=== PATIENT | female | born 1940 | race Caucasian/White ===

== ENCOUNTER 2017-07-13 11:31 | Inpatient (IN) ==
[2017-07-13] MEDS ORDERED: ACETAMINOPHEN 325 MG TABLET PO PRN (11:34)
[2017-07-13] MEDS ORDERED: ALUMINUM/MAGNES/SIMETH MAX STR 30 ML UDCUP PO PRN (11:34)
[2017-07-13] MEDS ORDERED: ONDANSETRON 4 MG/2 ML VIAL IV PRN (11:34)
[2017-07-13] MEDS ORDERED: DEXTROSE 50% 25 GM/50 ML VIAL IV PRN (11:34)
[2017-07-13] MEDS ORDERED: oxyCODONE/ACETAMINOPHEN 5-325 MG TABLET PO PRN (11:34)
[2017-07-13] MEDS ORDERED: GLUCAGON 1 MG VIAL IM PRN (11:34)
[2017-07-13] MEDS ORDERED: HYDROmorphone 2 MG/1 ML VIAL IV PRN (11:34)
[2017-07-13] MEDS ORDERED: SKIN HEALING OINT (AQUAPHOR) 50 GM TUBE TOP PRN (11:49)
[2017-07-13] MEDS ORDERED: CHLORHEXIDINE 4% SOLN 118 ML BOTTLE TOP ONE (11:49)
[2017-07-13 13:30] LABS: Basophils # 0.1 10*3/uL (0.0-0.2); Basophils % 0.6 % (0.0-0.8); Eosinophils # 0.1 10*3/uL (0.0-0.87); Eosinophils % 0.6 % (0.00-10.9); Hematocrit 41.3 VOL% (35.7-47.0); Hemoglobin 13.9 GM/DL (12.0-16.0); Immature Granulocytes % 0.6 %; Immature Granulocytes Absolute 0.07 #; Lymphocytes # 2.7 10*3/uL (1.4-4.0); Lymphocytes % 22.6 % (21.3-54.2); Mean Corpuscular HGB Conc 33.7 GM/DL (32-36); Mean Corpuscular Hemoglobin 28 PG (27-34); Mean Corpuscular Volume 83.9 FL (87-102); Mean Platelet Volume 9.4 FL (9.6-12.0); Monocytes # 0.6 10*3/uL (0.11-0.8); Monocytes % 5.5 % (1.7-12.7); Neutrophils # 8.2 10*3/uL (1.4-7.4); Neutrophils % 70.1 % (38.7-73.9); Platelet Count 364 T/CUMM (130-400); Red Blood Count 4.92 MC/CUMM (3.8-5.5); Red Cell Distribution Width 12.2 % (9.3-17.3); White Blood Count 11.7 T/CUMM (4-12)
[2017-07-13] MEDS: ALBUTEROL 2.5 MG/3 ML NEB RESP TX SCH ×3 (13:43→19:25)
[2017-07-13 13:50] LABS: Albumin 3.1 G/DL (3.4-5.0); Bilirubin,Total 0.4 MG/DL (0.2-1.0); Calcium 9.3 MG/DL (8.5-10.1); Osmolality,Calculated 274.8 MOS/KG (273-304); Potassium 4.3 MMOL/L (3.5-5.1); Total Protein 8.1 G/DL (6.4-8.3)
[2017-07-13] MEDS: SODIUM CHLORIDE 0.45% 1,000 ML IV SCH (15:59)
[2017-07-13] MEDS: MEROPENEM 1,000 MG in SODIUM CHLORIDE 0.9% 50 ML IV SCH ×2 (16:02→23:33)
[2017-07-13] MEDS: INSULIN REGULAR 100 UNIT/ML SUBCUT SCH ×2 (16:40→21:43)
[2017-07-13] MEDS: MAGNESIUM CHLORIDE 64 MG TABLET PO SCH (21:41)
[2017-07-13] MEDS: ASPIRIN EC 325 MG TABLET PO SCH (21:41)
[2017-07-13] MEDS: cloNIDine 0.1 MG TABLET PO SCH (21:42)
[2017-07-13] MEDS: DOCUSATE SODIUM 100 MG CAPSULE PO SCH (21:42)
[2017-07-14] MEDS: METOPROLOL TARTRATE 25 MG TABLET PO SCH ×3 (01:15→20:25)
[2017-07-14] MEDS: LEVALBUTEROL 1.25 MG/3 ML NEB RESP TX SCH ×4 (03:37→19:27)
[2017-07-14 03:47] LABS: Basophils # 0.1 10*3/uL (0.0-0.2); Basophils % 0.6 % (0.0-0.8); Eosinophils # 0.2 10*3/uL (0.0-0.87); Eosinophils % 2.2 % (0.00-10.9); Hematocrit 34.9 VOL% (35.7-47.0); Hemoglobin 11.9 GM/DL (12.0-16.0); Immature Granulocytes % 0.4 %; Immature Granulocytes Absolute 0.04 #; Lymphocytes % 44.2 % (21.3-54.2); Mean Corpuscular HGB Conc 34.1 GM/DL (32-36); Mean Corpuscular Hemoglobin 29 PG (27-34); Mean Corpuscular Volume 84.3 FL (87-102); Mean Platelet Volume 9.6 FL (9.6-12.0); Monocytes # 0.6 10*3/uL (0.11-0.8); Monocytes % 7.1 % (1.7-12.7); Neutrophils # 4.1 10*3/uL (1.4-7.4); Neutrophils % 45.5 % (38.7-73.9); Platelet Count 325 T/CUMM (130-400); Red Blood Count 4.14 MC/CUMM (3.8-5.5); Red Cell Distribution Width 12.3 % (9.3-17.3)
[2017-07-14 04:03] LABS: Calcium 8.7 MG/DL (8.5-10.1); Osmolality,Calculated 280.7 MOS/KG (273-304)
[2017-07-14] MEDS: MEROPENEM 1,000 MG in SODIUM CHLORIDE 0.9% 50 ML IV SCH ×3 (06:10→23:37)
[2017-07-14] MEDS: IPRATROPIUM 500 MCG/2.5 ML NEB RESP TX SCH ×4 (07:08→19:27)
[2017-07-14 07:56] LABS: Barbiturates Screen,Urine Negative (Negative); Benzodiazepines Screen,Urine Negative (Negative); Cannabinoid Screen,Urine Negative (Negative); Opiate Screen,Urine Negative (Negative); Phencyclidine Screen,Urine Negative (Negative)
[2017-07-14] MEDS: cloNIDine 0.1 MG TABLET PO SCH ×2 (08:17→20:25)
[2017-07-14] MEDS: INSULIN REGULAR 100 UNIT/ML SUBCUT SCH ×4 (08:18→23:28)
[2017-07-14] MEDS: MAGNESIUM CHLORIDE 64 MG TABLET PO SCH ×2 (09:35→20:25)
[2017-07-14] MEDS: SPIRONOLACTONE 25 MG TABLET PO SCH (09:35)
[2017-07-14] MEDS: CHLORTHALIDONE 25 MG TABLET PO SCH (09:36)
[2017-07-14] MEDS: DOCUSATE SODIUM 100 MG CAPSULE PO SCH ×2 (09:36→20:25)
[2017-07-14] MEDS: LISINOPRIL 20 MG TABLET PO SCH (09:36)
[2017-07-14] MEDS: amLODIPine 5 MG TABLET PO SCH (09:37)
[2017-07-14] MEDS: LITHIUM 150 MG CAPSULE PO SCH (09:38)
[2017-07-14] MEDS: SODIUM CHLORIDE 0.45% 1,000 ML IV SCH (09:39)
[2017-07-14] MEDS: PANTOPRAZOLE 40 MG TABLET PO SCH (09:41)
[2017-07-14] MEDS: BACITRACIN OINT 0.9 GM PACK TOP SCH (14:57)
[2017-07-14] MEDS ORDERED: MAGNESIUM SULF RIDER 2 GM in PREMIX 1 EACH IV ONE (20:25)
[2017-07-14] MEDS: ASPIRIN EC 325 MG TABLET PO SCH (20:29)
[2017-07-14] MEDS ORDERED: TEMAZEPAM 15 MG CAPSULE PO ONE (21:00)
[2017-07-15 03:49] LABS: Basophils # 0.1 10*3/uL (0.0-0.2); Basophils % 0.7 % (0.0-0.8); Eosinophils # 0.2 10*3/uL (0.0-0.87); Eosinophils % 2.4 % (0.00-10.9); Hematocrit 34.9 VOL% (35.7-47.0); Hemoglobin 11.9 GM/DL (12.0-16.0); Immature Granulocytes % 0.6 %; Immature Granulocytes Absolute 0.05 #; Lymphocytes % 35.4 % (21.3-54.2); Mean Corpuscular HGB Conc 34.1 GM/DL (32-36); Mean Corpuscular Hemoglobin 29 PG (27-34); Mean Corpuscular Volume 83.9 FL (87-102); Mean Platelet Volume 9.5 FL (9.6-12.0); Monocytes # 0.7 10*3/uL (0.11-0.8); Monocytes % 8.2 % (1.7-12.7); Neutrophils # 4.4 10*3/uL (1.4-7.4); Neutrophils % 52.7 % (38.7-73.9); Platelet Count 319 T/CUMM (130-400); Red Blood Count 4.16 MC/CUMM (3.8-5.5); Red Cell Distribution Width 12.3 % (9.3-17.3); White Blood Count 8.3 T/CUMM (4-12)
[2017-07-15 04:30] LABS: Calcium 8.7 MG/DL (8.5-10.1); Osmolality,Calculated 272.1 MOS/KG (273-304); Potassium 4.5 MMOL/L (3.5-5.1)
[2017-07-15] MEDS: SODIUM CHLORIDE 0.45% 1,000 ML IV SCH (06:32)
[2017-07-15] MEDS: MEROPENEM 1,000 MG in SODIUM CHLORIDE 0.9% 50 ML IV SCH ×3 (06:56→23:02)
[2017-07-15] MEDS: LEVALBUTEROL 1.25 MG/3 ML NEB RESP TX SCH ×4 (08:17→19:15)
[2017-07-15] MEDS: IPRATROPIUM 500 MCG/2.5 ML NEB RESP TX SCH ×4 (08:17→19:15)
[2017-07-15] MEDS: DOCUSATE SODIUM 100 MG CAPSULE PO SCH ×2 (09:44→21:12)
[2017-07-15] MEDS: cloNIDine 0.1 MG TABLET PO SCH ×2 (09:44→21:11)
[2017-07-15] MEDS: CHLORTHALIDONE 25 MG TABLET PO SCH (09:44)
[2017-07-15] MEDS: SPIRONOLACTONE 25 MG TABLET PO SCH (09:44)
[2017-07-15] MEDS: METOPROLOL TARTRATE 25 MG TABLET PO SCH ×2 (09:45→21:11)
[2017-07-15] MEDS: PANTOPRAZOLE 40 MG TABLET PO SCH (09:46)
[2017-07-15] MEDS: MAGNESIUM CHLORIDE 64 MG TABLET PO SCH ×2 (09:47→21:11)
[2017-07-15] MEDS: LITHIUM 150 MG CAPSULE PO SCH (09:54)
[2017-07-15] MEDS: INSULIN REGULAR 100 UNIT/ML SUBCUT SCH ×4 (09:54→21:12)
[2017-07-15] MEDS: amLODIPine 5 MG TABLET PO SCH (10:16)
[2017-07-15] MEDS: LISINOPRIL 20 MG TABLET PO SCH (10:16)
[2017-07-15] MEDS: BACITRACIN OINT 0.9 GM PACK TOP SCH (10:18)
[2017-07-15] MEDS: ASPIRIN EC 325 MG TABLET PO SCH (21:11)
[2017-07-16] MEDS: LEVALBUTEROL 1.25 MG/3 ML NEB RESP TX SCH ×4 (00:42→18:48)
[2017-07-16 05:02] LABS: Basophils % 0.5 % (0.0-0.8); Eosinophils # 0.2 10*3/uL (0.0-0.87); Eosinophils % 2.7 % (0.00-10.9); Hemoglobin 11.6 GM/DL (12.0-16.0); Immature Granulocytes % 0.5 %; Immature Granulocytes Absolute 0.04 #; Lymphocytes # 2.9 10*3/uL (1.4-4.0); Lymphocytes % 35.5 % (21.3-54.2); Mean Corpuscular HGB Conc 33.1 GM/DL (32-36); Mean Corpuscular Hemoglobin 28 PG (27-34); Mean Corpuscular Volume 85.4 FL (87-102); Mean Platelet Volume 9.4 FL (9.6-12.0); Monocytes # 0.6 10*3/uL (0.11-0.8); Neutrophils # 4.3 10*3/uL (1.4-7.4); Neutrophils % 53.8 % (38.7-73.9); Platelet Count 314 T/CUMM (130-400); Red Cell Distribution Width 12.5 % (9.3-17.3)
[2017-07-16 05:40] LABS: Calcium 8.5 MG/DL (8.5-10.1); Potassium 4.3 MMOL/L (3.5-5.1)
[2017-07-16] MEDS: MEROPENEM 1,000 MG in SODIUM CHLORIDE 0.9% 50 ML IV SCH ×2 (06:44→19:39)
[2017-07-16] MEDS: IPRATROPIUM 500 MCG/2.5 ML NEB RESP TX SCH ×4 (08:06→18:48)
[2017-07-16] MEDS ORDERED: INSULIN GLARGINE 100 UNIT/ML SUBCUT SCH ×2 (09:00→21:00)
[2017-07-16] MEDS: INSULIN REGULAR 100 UNIT/ML SUBCUT SCH ×4 (10:05→21:40)
[2017-07-16] MEDS: cloNIDine 0.1 MG TABLET PO SCH ×2 (10:05→21:30)
[2017-07-16] MEDS: DOCUSATE SODIUM 100 MG CAPSULE PO SCH ×2 (10:09→21:33)
[2017-07-16] MEDS: SPIRONOLACTONE 25 MG TABLET PO SCH (10:09)
[2017-07-16] MEDS: CHLORTHALIDONE 25 MG TABLET PO SCH (10:10)
[2017-07-16] MEDS: MAGNESIUM CHLORIDE 64 MG TABLET PO SCH ×2 (10:11→21:33)
[2017-07-16] MEDS: LISINOPRIL 10 MG TABLET PO SCH (10:11)
[2017-07-16] MEDS: METOPROLOL TARTRATE 25 MG TABLET PO SCH ×2 (10:11→21:30)
[2017-07-16] MEDS: PANTOPRAZOLE 40 MG TABLET PO SCH (10:11)
[2017-07-16] MEDS: LITHIUM 150 MG CAPSULE PO SCH (10:19)
[2017-07-16] MEDS: SODIUM CHLORIDE 0.45% 1,000 ML IV SCH ×2 (14:09→21:28)
[2017-07-16] MEDS: BACITRACIN OINT 0.9 GM PACK TOP SCH (19:39)
[2017-07-16] MEDS: ACETIC ACID 0.25% IRRIGATION 1,000 ML BOTTLE IRRIG SCH (21:29)
[2017-07-16] MEDS: LINEZOLID 600 MG TABLET PO SCH (21:30)
[2017-07-16] MEDS: GENTAMICIN 0.1% OINT 15 GM TUBE TOP SCH (21:33)
[2017-07-16] MEDS: ASPIRIN EC 325 MG TABLET PO SCH (21:33)
[2017-07-17] MEDS: LEVALBUTEROL 1.25 MG/3 ML NEB RESP TX SCH ×2 (00:03→07:31)
[2017-07-17] MEDS: IPRATROPIUM 500 MCG/2.5 ML NEB RESP TX SCH (07:31)
[2017-07-17] MEDS: INSULIN REGULAR 100 UNIT/ML SUBCUT SCH ×2 (08:07→11:47)
[2017-07-17] MEDS: DOCUSATE SODIUM 100 MG CAPSULE PO SCH (09:18)
[2017-07-17] MEDS: CHLORTHALIDONE 25 MG TABLET PO SCH (09:18)
[2017-07-17] MEDS: PANTOPRAZOLE 40 MG TABLET PO SCH (09:18)
[2017-07-17] MEDS: LISINOPRIL 10 MG TABLET PO SCH (09:19)
[2017-07-17] MEDS: METOPROLOL TARTRATE 25 MG TABLET PO SCH (09:19)
[2017-07-17] MEDS: MAGNESIUM CHLORIDE 64 MG TABLET PO SCH (09:19)
[2017-07-17] MEDS: LINEZOLID 600 MG TABLET PO SCH (09:20)
[2017-07-17] MEDS: cloNIDine 0.1 MG TABLET PO SCH (09:20)
[2017-07-17] MEDS: GENTAMICIN 0.1% OINT 15 GM TUBE TOP SCH (09:23)
[2017-07-17] MEDS: LITHIUM 150 MG CAPSULE PO SCH (09:26)
[2017-07-17] MEDS: SPIRONOLACTONE 25 MG TABLET PO SCH (09:26)
[2017-07-17] MEDS: ACETIC ACID 0.25% IRRIGATION 1,000 ML BOTTLE IRRIG SCH (10:44)
[2017-07-17 12:00] VITALS: BP 128/70
== END 2017-07-17 15:20 | disposition home health service (06) | DRG 638 ==
LOC: N.3E → OBSVTOIN 12:13
PROVIDERS: ADMIT Specialist; ATTEND Specialist